=== PATIENT | male | born 1980 | race Hispanic/Latino ===

== ENCOUNTER 2017-09-04 09:47 | Emergency (ER) | payer OTHER ==
[~2017-09-04] VITALS: Ht 165.1 cm; Wt 75.0 kg
[2017-09-04] MEDS ORDERED: MOTRIN400 MG PO (11:51)
[2017-09-04] MEDS ORDERED: CYCLOBENZAPR5 MG PO (11:51)
[2017-09-04 11:57] VITALS: BP 130/80
== END 2017-09-04 12:00 | disposition home or self-care (01) | DRG 552 ==
LOC: ED 09:47
DX: M54.9 Dorsalgia, unspecified (principal); R07.81 Pleurodynia; R50.9 Fever, unspecified